=== PATIENT | female | born 1990 | race Caucasian/White ===

== ENCOUNTER 2017-05-05 06:16 | Emergency (ER) | payer MEDICAID ==
[2017-05-05 06:16] VITALS: BMI 20.7
--- NOTE | 2017-05-05 07:23 | C.PDOC ---
History Of Present Illness 26 y/o F c PMHx Lupus p/w R upper molar dental pain since last night. Pain is achy, constant. Denies fever, stiff neck, discharge, vomiting. States plan is to call dentist when they open today to make appointment. Time Seen by Provider: 05/05/17 07:13 Chief Complaint (Nursing): Dental Pain Past Medical History Vital Signs: Last Vital Signs Temp 97.8 F 05/05/17 06:29 Pulse 75 05/05/17 06:29 Resp 18 05/05/17 06:29 BP 143/73 05/05/17 06:29 Pulse Ox 99 05/05/17 06:29 - Medical History PMH: Anxiety (as per ems report), Bipolar Disorder, Depression, Post Traumatic Stress Disorder, Schizophrenia Denies: Diabetes, Hepatitis, HIV, HTN, Chronic Kidney Disease, Seizures, Sexually Transmitted Disease - [facility] Procedures GROUP PSYCHOTHERAPY (07/23/16) INDIVIDUAL PSYCHOTHERAPY, COGNITIVE-BEHAVIORAL (07/23/16) Family History: States: Unknown Family Hx - Social History Hx Alcohol Use: Yes Hx Substance Use: Yes - Immunization History Hx Tetanus Toxoid Vaccination: No Hx Influenza Vaccination: No Hx Pneumococcal Vaccination: No Review Of Systems Except As Marked, All Systems Reviewed And Found Negative. Constitutional: Negative for: Fever Gastrointestinal: Negative for: Vomiting Physical Exam - Physical Exam Additional Physical Exam Comments: Gen: NAD Head: NC Eyes: No scleral icterus ENT: R upper molar with cavity and filling, no surrounding erythema, discharge, or swelling. R TM normal. No mastoid tenderness. Neck: No lymphadenopathy. No nuchal rigidity. Neuro: Alert, no focal deficit ED Course And Treatment O2 Sat by Pulse Oximetry: 99 Medical Decision Making Medical Decision Making: Will start on Augmentin, continue ibuprofen, add acetaminophen as needed, follow up dental, return to ED for worsening fever, pain, stiff neck, or any other problem. Disposition - Disposition Referrals: Non [facility] Provider, [Primary Care Provider] - Disposition: HOME/ ROUTINE Disposition Time: 07:23 Condition: STABLE Prescriptions: Amoxicillin/Clavulanate [Augmentin 875 MG-125 MG] 1 tab PO BID #19 tab Instructions: Dental Pain - Clinical Impression Clinical Impression: Pain, dental
[2017-05-05] MEDS ORDERED: Amoxicillin-Clav 875-125 mg Tab PO STA (07:24)
[2017-05-05] MEDS ORDERED: Amoxicillin-Clav 875-125 mg Tab PO ONE (07:35)
[2017-05-05 07:39] VITALS: BP 130/78; PULSE 78; RESP 20; TEMP 98; O2SAT 98
== END 2017-05-05 07:40 | disposition home or self-care (01) ==
LOC: C.ER 06:16 → SUPCPDRO 06:16 → C.ER 07:40
DX: K08.89 Other specified disorders of teeth and supporting structures (principal); M32.9 Systemic lupus erythematosus, unspecified

== ENCOUNTER 2017-06-12 14:33 | Inpatient (IN) | payer MEDICAID ==
[2017-06-12 14:34] VITALS: BMI 20.7
[2017-06-12] MEDS ORDERED: Sodium Chloride 0.9% 1,000 ML IV ONE (14:49)
--- NOTE | 2017-06-12 15:22 | C.PDOC ---
History Of Present Illness 26-year-old female, BIBA for ingestion of seven tabs of 50mg Seroquel, and two tabs of 50mg Buspar. EMS was called by boyfriend, who was on the phone with patient when took the medications and expressed SI. Patient admits to feeling anxious and depressed, but denies any SI at this time. She states she only took the medications to calm down. PMHx of SLE. Time Seen by Provider: 06/12/17 14:40 Chief Complaint (Nursing): Psychiatric Evaluation History Per: Patient History/Exam Limitations: no limitations Onset/Duration Of Symptoms: Other ([employer]) Associated Symptoms: Anxiety, Depression, Suicidal Thoughts Involuntary Hold By: Emergency Physician Past Medical History Reviewed: Historical Data, Nursing Documentation, Vital Signs Vital Signs: Last Vital Signs Temp 97.8 F 06/12/17 18:45 Pulse 78 06/12/17 18:45 Resp 16 06/12/17 18:45 BP 102/68 06/12/17 18:45 Pulse Ox 100 06/12/17 18:45 - Medical History PMH: Anxiety (as per ems report), Bipolar Disorder, Depression, Post Traumatic Stress Disorder, Schizophrenia - [facility] Procedures GROUP PSYCHOTHERAPY (07/23/16) INDIVIDUAL PSYCHOTHERAPY, COGNITIVE-BEHAVIORAL (07/23/16) Family History: States: No Known Family Hx - Social History Hx Alcohol Use: Yes Hx Substance Use: Yes - Immunization History Hx Tetanus Toxoid Vaccination: No Hx Influenza Vaccination: No Hx Pneumococcal Vaccination: No Review Of Systems Except As Marked, All Systems Reviewed And Found Negative. Constitutional: Negative for: Fever, Chills Cardiovascular: Negative for: Chest Pain, Palpitations Respiratory: Negative for: Cough, Shortness of Breath Gastrointestinal: Negative for: Nausea, Vomiting, Abdominal Pain, Diarrhea Musculoskeletal: Negative for: Back Pain Neurological: Negative for: Weakness, Numbness Psych: Positive for: Anxiety, Depression, Suicidal ideation Physical Exam - Physical Exam Appears: Well, Non-toxic, No Acute Distress (Uncooperative) Skin: Normal Color, Warm, Dry, No Rash Head: Normacephalic Eye(s): bilateral: Normal Inspection, PERRL, EOMI Nose: Normal Oral Mucosa: Moist Lips: Normal Appearing Chest: Symmetrical Cardiovascular: Rhythm Regular, No Murmur Respiratory: Normal Breath Sounds, No Accessory Muscle Use, No Rales, No Rhonchi , No Wheezing Gastrointestinal/Abdominal: Normal Exam, Bowel Sounds, Soft, No Tenderness Extremity: Normal ROM, No Pedal Edema, No Deformity Extremity: Bilateral: Atraumatic Neurological/Psych: Oriented x3 ED Course And Treatment - Laboratory Results Result Diagrams: 06/12/17 16:17 06/12/17 16:17 ECG: Interpreted By Me, Viewed By Me (NSR 81 bpm, QTc 443ms, normal axis, no acute ST/T wave changes) ECG Interpretation: Normal O2 Sat by Pulse Oximetry: 100 (RA) Pulse Ox Interpretation: Normal - Other Rad CXR X-Ray: Viewed By Me, Read By Radiologist Interpretation: Accession No. : [id number]. Patient Name / ID : CLARITA LU / [id number]. Exam Date : 06/12/2017 14:51:45 ( Approved ). Study Comment : Sex / Age : F / 26Y. Creator : Rm Fuentes MD. Dictator : Social Services : Correspondent : Rm Fuentes MD. Approver2 : Report Date : 06/12/2017 15:21:14. My Comment : . PROCEDURE: CHEST RADIOGRAPH, 1 VIEW. HISTORY: Overdose. COMPARISON: None available. FINDINGS: LUNGS: Clear. PLEURA: No pneumothorax or pleural fluid seen. CARDIOVASCULAR: Normal. OSSEOUS STRUCTURES: No significant abnormalities. VISUALIZED UPPER ABDOMEN: Normal. OTHER FINDINGS: None. IMPRESSION: No active disease. Progress Note: Patient placed on ED 1:1 observation. Blood work, UA, UDS, CXR, EKG ordered and reviewed. Patient given IV NS bolus. Spoke with Kassie at [facility], doses of meds given are upper limit of normal doses for those psychiatric medications, not technically an overdose. Recommends IV fluids, benzos as needed for agitation, and patient can be medically cleared if tylenol/ salicylates are WNL. 6:40pm- repeat EKG NSR 76 bpm, normal axis, QTc 432 ms, no acute ST/T wave changes (normal EKG). 6:45pm- Patient medically cleared. Pending crisis. Disposition - Disposition Disposition Time: 19:00 Condition: STABLE Forms: [facility] ([place] Citizen) - Clinical Impression Clinical Impression: Depression, Anxiety, Drug ingestion, Suicidal ideations - Scribe Statement The provider has reviewed the documentation as recorded by the Scribe (Lebron Jordan) All medical record entries made by the Scribe were at my direction and personally dictated by me. I have reviewed the chart and agree that the record accurately reflects my personal performance of the history, physical exam, medical decision making, and the department course for this patient. I have also personally directed, reviewed, and agree with the discharge instructions and disposition. Physician Patient Turnover Patient Signed Over To: Eder Harper Handoff Comments: pending crisis disposition
[2017-06-12 16:22] LABS: BASO # 0.1 K/uL (0.0-0.2); BASO % 0.8 % (0.0-2.0); EOS # 0.1 K/uL (0.0-0.7); EOS % 0.8 % (0.0-4.0); HEMOGLOBIN 12.8 g/dL (11.0-16.0); LYMPH # 1.9 K/uL (1.0-4.3); LYMPH % 27.5 % (20.0-40.0); MEAN CELL VOLUME 81.7 fL (81.0-99.0); MEAN CORPUSCULAR HEMOGLOBIN 27.1 pg (27.0-31.0); MEAN CORPUSCULAR HGB CONC 33.2 g/dL (33.0-37.0); MEAN PLATELET VOLUME 11.8 fL (7.2-11.7); MONO # 0.6 K/uL (0.0-0.8); MONO % 9.3 % (0.0-10.0); NEUT # 4.3 K/uL (1.8-7.0); NEUT % 61.6 % (50.0-75.0); NRBC % 0.1 % (0.0-2.0); RBC 4.7 Mil/uL (3.80-5.20); RED CELL DISTRIBUTION WIDTH 14.1 % (11.5-14.5); WHITE BLOOD COUNT 6.9 K/uL (4.8-10.8)
[2017-06-12 16:29] LABS: PROTHROMBIN TIME 11.4 SECONDS (9.7-12.2)
[2017-06-12 16:36] LABS: ALB/GLOB RATIO 1.1 (1.0-2.1); ALBUMIN 4.2 g/dL (3.5-5.0); ALT/SGPT 32 U/L (9-52); AST/SGOT 23 U/L (14-36); BLOOD UREA NITROGEN 8 mg/dL (7-17); GFR AFRICAN-AMERICAN > 60; GFR NON-AFRICAN AMERICAN > 60; LIPASE 98 U/L (23-300)
[2017-06-12 17:58] LABS: SQUAMOUS EPITHIAL 3 /hpf (0-5); URINE BILIRUBIN NEGATIVE (NEGATIVE); URINE BLOOD 1+ (NEGATIVE); URINE CLARITY Hazy (Clear); URINE COLOR Yellow (YELLOW); URINE GLUCOSE (UA) NORMAL (Normal); URINE LEUKOCYTE ESTERASE NEG Leu/uL (Negative); URINE PROTEIN NEGATIVE (NEGATIVE); URINE UROBILINOGEN NORMAL mg/dL (0.2-1.0)
[2017-06-12 18:05] LABS: BARBITURATES, UR NEGATIVE (NEGATIVE); BENZODIAZEPINES, UR NEGATIVE (NEGATIVE); OPIATES, UR NEGATIVE (NEGATIVE); PHENCYCLIDINE, UR NEGATIVE (NEGATIVE)
[2017-06-12 18:07] LABS: ACETAMINOPHEN < 10.0 ug/mL (10.0-30.0); SALICYLATE < 1.0 mg/dL 1
[2017-06-12 18:43] LABS: HCG,QUALITATIVE URINE NEGATIVE (NEGATIVE)
--- NOTE | 2017-06-12 20:54 | PCM.BM ---
<Angelika Carpenter - Last Filed: 06/12/17 20:53> Treatment Plan Problems - Problems identified on initial assessmt depression Date Initiated: 06/12/17 Time Initiated: 20:53 Assessment reference: NA Status: Active Treatment assets and liabiliti Patient Assests: negotiates basic needs, good past tx response Patient Liabilities: poor support system, relationship conflicts - Milieu Protocol Maintain good personal hygiene: daily Encourage regular showers, daily Remind patient to perform daily oral care Conduct patient checks and document Observation sheet: Q15 minutes Maintain personal safety: every shift Educate patient to report safety concerns to staff, every shift Monitor environment for contraband/sharps Medication safety: Monitor for expected outcome, potential side effects: every shift, Assess barriers to learning: every shift, Assess readiness for medication education: every shift <Miryam Garay - Last Filed: 06/13/17 11:33> - Diagnosis (1) Bipolar disorder, curr episode mixed, severe, with psychotic features Status: Acute Interventions: 06/13/17 11:33 * Assess/adjust medications daily and /or as needed * See patient on an individual basis 7x/week to assess level of manic behaviors and stability * Discuss risks, benefits, side effects and alternatives of medications * <Paulina Newton - Last Filed: 06/13/17 12:31> Family Contact Family involvement: Famliy/SO not involved Family contact: Patient declines to allow family contact at present - Goals for Treatment Patient goals for treatment: "I just want to go home! I also need a psychiatrist." Discharge/Continuing Care - Education Needs Education Needs: Patient Medication, Patient Diagnosis/Disease Process, Patient Coping Skills, Patient Aftercare Safety Plan - Discharge Discharge Criteria: Free of Suicidal thoughts, Ability to care for self, Reduction of target symptoms Discharge to:: Home - Treatment Team Participation Discussed with Family/SO: No Was Patient/Family/SO present at Treatment Team Meeting: Yes
--- NOTE | 2017-06-13 11:26 | PCM.PSYCH ---
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 had a suicidal attempt by OD on pills. Pt. reports as long history of schizoaffective disorder. She has been noncompliant with her treatment and follow-up. She remained superficially cooperative but guarded about the details. She was labile, paranoid and somewhat disorganized. She reports that she did not want to commit suicide and that she only wanted to get her roommate attention. Patient remained irritable and agitated. She denied the necessity to stay in the hospital and denied any need to take medications. She reports at times auditory hallucinations of ' Eboni', who tell her sometimes to kill herself. She also reports visual hallucinations of a black dog. She reports at times persecutory delusions that [facility] and [facility] IS following her. She also reports racing of thoughts, poor sleep, irritability and agitation. Past psychiatric history: History of multiple inpatient psychiatric hospitalizations. 2 years ago she was escorted to the [facility], when she was found walking in the community in an unkempt state and exhibiting bizarre and disorganized behaviors. She also presented some odd shaking/twitching movements. History of multiple suicidal attempts, including cutting and overdosing. her last overdose was last year. Since then she is noncompliant with her treatment and follow-up. History of homicidal threat to her boyfriend in the past, when she knocked the door and was admitted at the [facility], last year. Past medical history History of lupus Current Medications: Active Medications Generic Name Dose Route Start Last Admin Trade Name Freq PRN Reason Stop Dose Admin Hydroxyzine HCl 25 mg 06/12/17 22:18 Atarax PO Q6 PRN Anxiety Lorazepam 1 mg 06/12/17 20:19 06/12/17 20:28 Ativan PO 1 mg Q6 PRN Administration Anxiety Quetiapine Fumarate 50 mg 06/12/17 22:30 06/12/17 22:46 Seroquel PO Not Given HS TERRY Trazodone HCl 50 mg 06/12/17 20:19 Desyrel PO HS PRN Insomnia Past Psychiatric History - Past Psychiatric History Previous Treatment History: Inpatient Pertinent Medical Hx (Current Medical&Sleep Prob, Allergies): Allergies Allergy/AdvReac Type Severity Reaction Status Date / Time No Known Allergies Allergy Verified 06/12/17 14:45 ARIPiprazole [Abilify] 5 mg PO DAILY #30 tab 07/26/16 Buspirone HCl [Buspirone HCl] 15 mg PO 06/12/17 QUEtiapine [SEROquel] 50 mg PO 06/12/17 Review of Systems - Review of Systems All systems: reviewed and no additional remarkable complaints except - Psychiatric Psychiatric: Anxiety, Auditory Hallucinations, Irritability, Mood Swings, Paranoia, Suicidal Ideation, Visual Hallucinations Mental Status Examination - Personal Presentation Personal Presentation: Looks stated age - Affect Affect: Broad - Motor Activity Motor Activity: Psychomotor Agitation - Reliability in Providing Information Reliability in Providing Information: Poor, due to alteration in thoughts, Poor , due to altered mood - Speech Speech: Disorganized - Mood Mood: Anxious - Formal Thought Process Formal Thought Process: Hallucinations, Delusions, Paranoia, Loosening of associations, Flight of ideas, Circumstantial - Hallucinations/Delusions Hallucinations: Visual, Auditory Delusions: Persecution - Obsessions/Compulsions Obsessions: No Compulsions: No - Cognitive Functions Orientation: Person, Place, Situation, Time Sensorium: Alert Attention/Concentration: Attentive Abstract Thinking: [place] Estimate of Intelligence: Below average Judgement: Imparied, as evidence by: Poor judgement, Imparied, as evidence by: Lack of insight into illness - Risk Risk: Suicidal, Diminished functioning - Strength & Assets Inventory Strength & Assets Inventory: Family support DSM 5 DX - DSM 5 DSM 5 Diagnosis: Schizoaffective disorder bipolar type rule out bipolar disorder severe with psychotic features - Recommended/Plan of Treatment Treatment Recommendations and Plan of Treatment: Schizoaffective disorder bipolar type Rule out Bipolar disorder severe with psychotic features CBT Psychoeducation Supportive therapy, group therapy, individual therapy Abilify 5 mg by mouth daily at bedtime Cogentin 1 mg by mouth twice a day Risperdal 1 mg by mouth twice a day Seroquel 50 mg by mouth daily at bedtime Cannabis use disorder mild CBT Psychoeducation Supportive therapy, individual therapy Use [place] for abstinence - Smoking Cessation Smoking Cessation Initiated: No
--- NOTE | 2017-06-13 11:52 | CARD ---
APPROVED REPORT EKG Measurement Heart [id number] <Conclusion> Normal sinus rhythm Normal ECG
--- NOTE | 2017-06-13 11:52 | CARD ---
APPROVED REPORT EKG Measurement Heart [id number] [id number] <Conclusion> Normal sinus rhythm Normal ECG
[2017-06-13 16:22] VITALS: O2SAT 96
--- NOTE | 2017-06-14 10:13 | PCM.PYCHPN ---
Psychiatric Progress Note - Psychiatric Progress Note Patient seen today, length of contact: 15 min Patient Chief Complaint: I was feeling jessica.' Problems Identified/Issues Discussed: Patient seen and evaluated, chart reviewed and discussed with the nurse. Patient remained irritable and agitated. She remained delusional and paranoid. She still has poor insight regarding her condition. She is refusing to take any medications saying she does not need help and she can cure her condition. Patient was seen and accepted by [facility] for involuntary commitment. Supportive therapy and psychoeducation were given. Medication Change: No Medical Record Reviewed: Yes Mental Status Examination - Cognitive Function Orientation: Person, Place, Situation, Time Memory: Intact Attention: Poor Concentration: Poor Association: Loose Fund of Knowledge: Poor - Mood Mood: Anxious - Affect Affect: Broad - Formal Thought Process Formal Thought Process: Hallucinations, Delusions, Paranoia, Loosening of associations, Flight of ideas, Circumstantial - Suicidal Ideation Suicidal Ideation: No - Homicidal Ideation Homicidal Ideation: No Goal/Treatment Plan - Goal/Treatment Plan Need for Continued Stay: Severe depression anxiety, Severe functional impairment Progress Toward Problem(s) and Goals/Treatment Plan: Schizoaffective disorder bipolar type Rule out Bipolar disorder severe with psychotic features CBT Psychoeducation Supportive therapy, group therapy, individual therapy Abilify 5 mg by mouth daily at bedtime Cogentin 1 mg by mouth twice a day Risperdal 1 mg by mouth twice a day Seroquel 50 mg by mouth daily at bedtime Cannabis use disorder mild CBT Psychoeducation Supportive therapy, individual therapy Use [place] for abstinence - Smoking Cessation Smoking Cessation Initiated: No
--- NOTE | 2017-06-15 11:02 | PCM.PYCHPN ---
Psychiatric Progress Note - Psychiatric Progress Note Patient seen today, length of contact: 15 min Patient Chief Complaint: I was feeling jessica.' Problems Identified/Issues Discussed: Patient seen and evaluated, chart reviewed and discussed with the nurse. Patient remained irritable and agitated. She remained delusional and paranoid. She still has poor insight regarding her condition. She is refusing to take any medications saying she does not need help and she can cure her condition. Patient was seen and accepted by [facility] for involuntary commitment. Supportive therapy and psychoeducation were given. Medication Change: No Medical Record Reviewed: Yes Mental Status Examination - Cognitive Function Orientation: Person, Place, Situation, Time Memory: Intact Attention: Poor Concentration: Poor Association: Loose Fund of Knowledge: Poor - Mood Mood: Anxious - Affect Affect: Broad - Formal Thought Process Formal Thought Process: Hallucinations, Delusions, Paranoia, Loosening of associations, Flight of ideas, Circumstantial - Suicidal Ideation Suicidal Ideation: No - Homicidal Ideation Homicidal Ideation: No Goal/Treatment Plan - Goal/Treatment Plan Need for Continued Stay: Severe depression anxiety, Severe functional impairment Progress Toward Problem(s) and Goals/Treatment Plan: Schizoaffective disorder bipolar type Rule out Bipolar disorder severe with psychotic features CBT Psychoeducation Supportive therapy, group therapy, individual therapy Abilify 5 mg by mouth daily at bedtime Cogentin 1 mg by mouth twice a day Risperdal 1 mg by mouth twice a day Seroquel 50 mg by mouth daily at bedtime Cannabis use disorder mild CBT Psychoeducation Supportive therapy, individual therapy Use [place] for abstinence
[2017-06-16 06:25] VITALS: RESP 19; TEMP 98.3
--- NOTE | 2017-06-16 14:25 | PCM.PYCHDC ---
Mental Status Examination - Mental Status Examination Orientation: Person, Place, Situation, Time Memory: Intact Mood: Neutral Affect: Constricted Speech: Soft Attention: WNL Concentration: WNL Association: WNL Fund of Knowledge: WNL Formal Thought Process: No Impairment Suicidal Ideation: No Current Homicidal Ideation?: No Discharge Summary - Discharge Note Consultations:: List each consultation separately and include: 1. Reason for request. 2. Findings. 3. Follow-up Summary of Hospital Course include:: 1. Description of specific treatment plan utilized for patients during their course of treatmen. 2. Summarize the time- course for resolution of acute symptoms and/or regressed behaviors. 3. Describe issues identified and worked on during hospitalization. 4. Describe medication utilized. 5. Describe medical problems identified and treated. 6. 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 had a suicidal attempt by OD on pills. Pt. reports as long history of schizoaffective disorder. She has been noncompliant with her treatment and follow-up. She remained superficially cooperative but guarded about the details. She was labile, paranoid and somewhat disorganized. She reports that she did not want to commit suicide and that she only wanted to get her roommate attention. Patient remained irritable and agitated. She denied the necessity to stay in the hospital and denied any need to take medications. She reports at times auditory hallucinations of ' Eboni', who tell her sometimes to kill herself. She also reports visual hallucinations of a black dog. She reports at times persecutory delusions that [facility] and [facility] IS following her. She also reports racing of thoughts, poor sleep, irritability and agitation. Past psychiatric history: History of multiple inpatient psychiatric hospitalizations. 2 years ago she was escorted to the [facility], when she was found walking in the community in an unkempt state and exhibiting bizarre and disorganized behaviors. She also presented some odd shaking/twitching movements. History of multiple suicidal attempts, including cutting and overdosing. her last overdose was last year. Since then she is noncompliant with her treatment and follow-up. History of homicidal threat to her boyfriend in the past, when she knocked the door and was admitted at the [facility], last year. Past medical history History of lupus - Diagnosis (1) Bipolar disorder, curr episode mixed, severe, with psychotic features Current Visit: Yes Status: Acute - Final Diagnosis (DSM 5) Condition upon Discharge: STABLE Disposition: DISCHARGE TO PSYCH HOSPITAL Follow-up Treatment Plan: Schizoaffective disorder bipolar type Rule out Bipolar disorder severe with psychotic features CBT Psychoeducation Supportive therapy, group therapy, individual therapy Abilify 5 mg by mouth daily at bedtime Cogentin 1 mg by mouth twice a day Risperdal 1 mg by mouth twice a day Seroquel 50 mg by mouth daily at bedtime Cannabis use disorder mild CBT Psychoeducation Supportive therapy, individual therapy Use [place] for abstinence Prescriptions/Medication Reconciliation: ARIPiprazole [Abilify] 5 mg PO HS #30 tab QUEtiapine [SEROquel] 50 mg PO HS #30 tab
[2017-06-16 15:54] VITALS: BP 122/87; PULSE 99
== END 2017-06-16 16:00 | disposition short-term general hospital (02) | DRG 430 ==
LOC: C.ER 14:33 → C.9E 19:04 → C.5E 19:13
PROVIDERS: ADMIT Psychiatry & Neurology Psychiatry; ATTEND Psychiatry & Neurology Psychiatry
PROC: GZHZZZZ Group Psychotherapy (ICD-10-PCS; principal; 2017-06-12)
PROC: GZ58ZZZ Individual Psychotherapy, Cognitive-Behavioral (ICD-10-PCS; 2017-06-12)
PROC: GZ56ZZZ Individual Psychotherapy, Supportive (ICD-10-PCS; 2017-06-12)
PROC: HZ52ZZZ Individual Psychotherapy for Substance Abuse Treatment, Cognitive-Behavioral (ICD-10-PCS; 2017-06-12)
PROC: HZ59ZZZ Individual Psychotherapy for Substance Abuse Treatment, Supportive (ICD-10-PCS; 2017-06-12)
PROC: HZ56ZZZ Individual Psychotherapy for Substance Abuse Treatment, Psychoeducation (ICD-10-PCS; 2017-06-12)
PROC: HZ42ZZZ Group Counseling for Substance Abuse Treatment, Cognitive-Behavioral (ICD-10-PCS; 2017-06-12)
PROC: HZ46ZZZ Group Counseling for Substance Abuse Treatment, Psychoeducation (ICD-10-PCS; 2017-06-12)
DX: F31.64 Bipolar disorder, current episode mixed, severe, with psychotic features (principal); F12.90 Cannabis use, unspecified, uncomplicated; Z91.19 Patient's noncompliance with other medical treatment and regimen; F41.9 Anxiety disorder, unspecified